=== PATIENT | male | born 1975 | race African-American/Black ===

== ENCOUNTER 2016-10-23 01:45 | Emergency (ER) | payer OTHER ==
[~2016-10-23] VITALS: Ht 157.5 cm; Wt 61.4 kg
[2016-10-23 01:49] VITALS: Ht 157.5 cm; Wt 61.4 kg
--- NOTE | 2016-10-23 02:31 | ERD ---
ER Documentation Chief Complaint Date/Time DATE: 10/23/16 TIME: 02:29 Chief Complaint ETOH intoxication,found sleeping on the ground,transient HPI 40-year-old man brought in by EMS for public intoxication, he admitted to drinking alcohol this evening and smoking marijuana. He has had no complaints of chest pain or shortness of breath, no cough, no fevers or chills, no trauma, no vomiting or diarrhea. Patient denies history of psychiatric illness, and denies suicidal homicidal ideation. He was transported here by EMS without any complications. ROS All systems reviewed and are negative except as per history of present illness. Medications Home Meds Reported Medications [none] No Conflict Check 06/27/12 Allergies Allergies: Coded Allergies: No Known Allergy (Unverified , 06/27/12) PMhx/Soc Alcoholism History of Surgery: Yes (R KNEE SURG 08/2011) Anesthesia Reaction: No Hx Neurological Disorder: No Hx Respiratory Disorders: No Hx Cardiac Disorders: No Hx Psychiatric Problems: No Hx Miscellaneous Medical Probl: No Hx Alcohol Use: Yes (everyday) Hx Substance Use: Yes (Marijuana) Hx Tobacco Use: Yes (1 pack a day ) Smoking Status: Current every day smoker FmHx Family History: No diabetes Physical Exam Vitals Vital Signs Date Time Temp Pulse Resp B/P Pulse Ox O2 Delivery O2 Flow Rate FiO2 10/23/16 01:49 97.0 96 18 128/67 100 Physical Exam GENERAL: Well-developed, well-nourished, appears intoxicated HEENT: Moist mucous membranes, pink conjunctiva, no cervical spine tenderness or step-off deformities, no goiter, no jaundice or icterus, extraocular movements intact without pain. No submandibular induration, and no pharyngeal erythema NEURO: Alert and oriented 3, cranial nerves II through XII intact bilaterally, pupils equal round reactive to light, no focal deficits or facial asymmetry, sensation intact distally Strength 5/5 in upper and lower extremities bilaterally CARDIAC: Regular rate and rhythm, no murmurs rubs or gallops LUNGS: Clear bilaterally no wheezing crackles or stridor ABDOMEN: Soft nontender, no guarding, no rigidity, no rebound, no psoas sign no obturator sign. Normoactive bowel sounds SKIN: Warm and dry to touch, no abrasions, contusions, or hematomas, no lacerations, no ecchymosis, no target lesions, and without ulcers EXTREMITIES: No clubbing cyanosis or edema, calves are bilaterally symmetrical, no Homans sign, no popliteal cord sign. Distal pulses equal and bilateral PSYCH: Normal affect without agitation or irritability Procedures/MDM Differential diagnoses considered, included but not limited to acute coronary syndrome, pulmonary embolism, aortic dissection, abdominal aortic aneurysm, sepsis, stroke, meningitis, encephalitis, pneumonia, appendicitis, cholecystitis , bowel obstruction, pyelonephritis, nephrolithiasis, cystitis, as well as metabolic, hematologic, and electrolyte abnormalities. As well as abscess, cellulitis, fractures, and dislocations. Observation Note: Time: 4 hours Family Hx: No Hypertension Evaluation: Multiple exams showed improving symptoms and no evidence of decreasing mental status or psychiatric illness. Patient feels much better at this time, and vital signs are normal, symptoms have improved. I did give strict instructions to return to the ED if symptoms continue or worsen, patient will otherwise follow-up with primary care physician. Patient understood instructions and agreed to plan. Disclaimer: Inadvertent spelling or grammatical errors are likely due to EHR/ dictation software use and do not reflect on the overall quality of patient care. Departure Diagnosis: Primary Impression: Marijuana abuse Additional Impression: Alcoholic intoxication Complication of substance-induced condition: uncomplicated Qualified Code: F10.120 - Alcoholic intoxication, uncomplicated Condition: Good Patient Instructions: Alcohol Intoxication, Marijuana Abuse VICKI RHODES MD October 23, 2016 02:31
[2016-10-23 05:28] VITALS: BP 138/69; PULSE 80; RESP 20; TEMP 97.8
[2016-10-23] MEDS ORDERED: LEVETIRACETAM 500 MG TAB PO ONE (12:00)
== END 2016-10-23 12:38 | disposition home or self-care (01) ==
LOC: E/R 01:45
DX: F12.10 Cannabis abuse, uncomplicated (principal); F17.210 Nicotine dependence, cigarettes, uncomplicated
CPT/HCPCS: Z7502; Z7610; 99283